=== PATIENT | male | born 1975 | race African-American/Black ===

== ENCOUNTER → 2016-06-03 | Outpatient (CLI) | payer MEDICARE ==
[~2016-06-03] MED LIST: BENADRYL50 MG; CYMBALTA 60MG60 MG PO; DEPAKOTE ER 50500 MG PO; DILANTIN 100MG100 MG PO; FLOMAX 0.40.4 MG/CAP PO; INDERAL 20MG20 MG PO; KLONOPIN2 MG PO; LITHIUM 60600 MG/CAP PO; MELATONIN5 M1 PO; MULTI VITAMINS1 TAB PO; NEURONTIN600 MG/TAB PO; RITALIN 20M20 MG/TAB PO; SEROQUEL 200MG200 MG PO; ULTRAM 50MG TAB50 MG PO; ZOFRAN 4MG T4 MG/TAB PO
== END ==
LOC: BHSO 10:54
DX: F20.9 Schizophrenia, unspecified (principal)

== ENCOUNTER → 2017-01-03 | Outpatient (CLI) | payer MEDICARE | LOC: BHSO 09:16 | DX: F20.9 Schizophrenia, unspecified (principal) ==

== ENCOUNTER → 2017-08-02 | Outpatient (CLI) | payer MEDICARE | LOC: COL.RAD 07:57 | DX: R11.0 Nausea (principal) | CPT/HCPCS: A9541 ==

== ENCOUNTER → 2017-10-06 | Outpatient (CLI) | payer MEDICARE | LOC: COL.RAD 16:10 | DX: S09.90XA Unspecified injury of head, initial encounter (principal) ==

== ENCOUNTER → 2018-04-19 | Outpatient (CLI) | payer MEDICARE | LOC: MHCPAIN 11:56 | DX: G89.29 Other chronic pain (principal); M79.10 Myalgia, unspecified site; M79.2 Neuralgia and neuritis, unspecified | CPT/HCPCS: G0463 ==

== ENCOUNTER 2021-03-04 07:14 | Day surgery (SDC) | payer MEDICARE ==
[~2021-03-04] VITALS: Ht 177.8 cm; Wt 90.2 kg
[2021-03-04] VITALS (7 sets, daily range): BP systolic 127–147; BP diastolic 101–108; PULSE 74–86; TEMP 97.5–98
[2021-03-04] MEDS ORDERED: LYRICA 150MG C150 MG PO (07:34)
[2021-03-04] MEDS ORDERED: BRINTELLIX20 PO (07:35)
[2021-03-04] MEDS ORDERED: COREG 6.256.25 MG/TA PO (07:35)
[2021-03-04] MEDS ORDERED: HYDROXIZINE PO (07:37)
[2021-03-04] MEDS ORDERED: DESYREL 100MG100 MG PO (07:38)
[2021-03-04] MEDS ORDERED: FLEXERIL 1010 MG/TAB PO (07:38)
--- NOTE | 2021-03-04 10:55 | NUR ---
0910 Pt returns from endo procedure via cart and RN assist to [facility]. Pt ambulates from cart to recliner with RN assist. Monitors on and alarms set. Call light within reach. Report received from ERIK Santizo. Pt alert and oriented. Pt requests juice only due to difficulty keeping food down as preop condition. Pt denies any pain or nausea. Pt's present in room. 0930 Pt taking drink well. No complications noted. Dr. Payne into visit with them, but family unavailable. Dr. Payne will return later when family is available. 1000 Pt continues to have no complications. 1037 Discharge instructions given to pt and . All questions answered to their satisfaction. Handed to pt's are a thank you card and discharge information. 1055 Pt transferred out of the hospital via wheelchair and Reggie assist, to private vehicle driven by pt's .
== END 2021-03-04 10:55 | disposition home or self-care (01) ==
LOC: SDCO 07:14
DX: Z12.11 Encounter for screening for malignant neoplasm of colon (principal); K63.5 Polyp of colon; K29.50 Unspecified chronic gastritis without bleeding; K64.0 First degree hemorrhoids; K90.49 Malabsorption due to intolerance, not elsewhere classified; I10 Essential (primary) hypertension; K21.9 Gastro-esophageal reflux disease without esophagitis; M79.7 Fibromyalgia; E78.5 Hyperlipidemia, unspecified; G47.33 Obstructive sleep apnea (adult) (pediatric); G89.29 Other chronic pain; G40.909 Epilepsy, unspecified, not intractable, without status epilepticus; M19.90 Unspecified osteoarthritis, unspecified site; J30.9 Allergic rhinitis, unspecified; F41.9 Anxiety disorder, unspecified; F25.9 Schizoaffective disorder, unspecified; F31.9 Bipolar disorder, unspecified; Z79.899 Other long term (current) drug therapy; Z98.84 Bariatric surgery status
CPT/HCPCS: J2704; J7120